=== PATIENT | male | born 1980 | race Caucasian/White ===

== ENCOUNTER 2021-09-01 15:35 | Emergency (ER) | payer SELFPAY ==
[~2021-09-01] VITALS: Ht 172.7 cm; Wt 81.7 kg
[2021-09-01] MEDS ORDERED: Norco 5-325 Ta1 EACH PO (18:17)
== END 2021-09-01 18:21 | disposition home or self-care (01) ==
LOC: ER 15:35
DX: S61.012A Laceration without foreign body of left thumb without damage to nail, initial encounter (principal); Z23 Encounter for immunization; W26.9XXA Contact with unspecified sharp object(s), initial encounter
CPT/HCPCS: 12001; 90471; 90714; 99282-25